=== PATIENT | male | born 1970 | race Caucasian/White ===

== ENCOUNTER 2023-02-21 11:09 | Emergency (ER) | payer OTHER, SELFPAY ==
--- NOTE | ~2023-02-21 | CT_ITS ---
EXAMINATION: CT abdomen pelvis wo con DATE: 02/21/2023 12:18 INDICATION: Left flank pain TECHNIQUE: Computed tomography (CT) of the abdomen and pelvis was performed without intravenous contr ast. The dose-length product (DLP) was 294.71 mGy-cm. Automated exposure control and iterative recons truction technique were employed. COMPARISON: None FINDINGS: There is mild emphysema visualized lung bases. Healed fractures of the right eighth through 10th ribs are noted. The heart size is normal. The liver, spleen, pancreas, gallbladder, and adrenal glands are normal. The right kidney is unremarkable. No stones are identified in the kidneys, ureter s, or bladder. No hydronephrosis or hydroureter. There are multiple (at least eight) hyperattenuating lesions of the left kidney which measure up to 6 mm and are consistent with hemorrhagic cysts. There is a 12 mm simple cyst of the left kidney. No pathologically enlarged abdominal or pelvic lymph node s are identified. There is calcified atherosclerosis of the aorta and many of the other arteries. No free intraperitoneal gas or evidence of bowel obstruction. A moderate volume of colonic stool is pres ent. There is severe lower lumbar spondylosis. IMPRESSION: 1. No CT correlate for the patient's symptoms. Reviewed, dictated and finalized at location B.
[2023-02-21 11:19] VITALS: BP 129/85; RESP 18; TEMP 36.6; O2SAT 96
--- NOTE | 2023-02-21 11:50 | ED.MALEGU ---
HPI - Male Genitourinary General Chief complaint: Urogenital-Male Stated complaint: prostate swelling Time Seen by Provider: 02/21/23 11:50 History of Present Illness HPI Narrative: Patient is a 52-year-old male with history of alcohol use disorder, hypertension, anxiety here with multiple complaints including difficulty maintaining a full stream of urine as well as some pain down his left leg. Patient states that he was recently at [facility] for use being treated for his alcohol use disorder. He states that during this hospitalization he was started on multiple new psychiatric medications. In the past he has had some intermittent difficulty with maintaining a strong urinary stream however over the last 2 weeks it seems to be more persistent and worsening. He notes that he seems to need to focus on urinating in order to fully void his bladder. Additionally he describes some pain located over the left flank, radiating into the buttock and into the proximal left lateral thigh. He notes that it feels like a tight band and gets much worse with walking including walking up and down hills. No associated numbness or weakness in the leg. He has been taking flexeril and gabapentin at home with minimal relief of the tightness. No midline back pain, no falls, no saddle anesthesia, no bowel or bladder incontinence. He did see his PCP last week for the same symptoms. Related Data Allergies Allergy/AdvReac Type Severity Reaction Status Date / Time No Known Allergies Allergy Unverified 01/23/14 18:53 Review of Systems Review of Systems: CONSTITUTIONAL: Denies fever, chills, or sweats. EYES: Denies visual changes, redness, or discharge. ENT: Denies rhinorrhea, congestion, sore throat, or otalgia. CARDIOVASCULAR: Denies chest pain, palpitations, or edema. RESPIRATORY: Denies cough or dyspnea. GASTROINTESTINAL: Denies abdominal pain, nausea, vomiting, or diarrhea. GENITOURINARY: Denies dysuria or hematuria. Difficulty maintaining strong urinary stream. SKIN: Denies rash or itching. MUSCULOSKELETAL: Denies back pain, joint pain, or myalgia. NEUROLOGIC: Denies headache, numbness, or weakness. PSYCHIATRIC: Denies anxiety or depression. Exam Narrative: GENERAL: Well-appearing, well-nourished, and in no acute distress. HEAD: Normocephalic, atraumatic. EYES: PERRLA and EOMI. ENT: Nares clear. Mucous membranes moist. NECK: Supple. CHEST: Clear to auscultation. No respiratory distress. HEART: Regular rate and rhythm. Normal peripheral pulses. ABDOMEN: Soft, nontender, nondistended. EXTREMITIES: Normal range of motion. No edema. Tenderness over the left lateral lower back with palpable muscle tightness in this region. Full ROM of lumbar spine with no midline tenderness. Normal sensation over bilateral lower extremities. SKIN: Warm, dry, no rash. NEURO: No focal deficits. Alert and oriented x3. PSYCH: Normal mood and affect. Course Course Emergency Course: Chart review performed, patient here with difficulty voiding and bilateral flank pain. No prior visits here in our system. Patient seen evaluated, in no acute distress. I believe he likely has 2 processes occurring at the same time. The 1st of which seems to be some intermittent difficulty with maintaining a strong urinary stream. He does note a history of this in the past but seems to have worsened since initiating multiple new psychiatric medications over the last 2 weeks. I believe this could be somewhat related to CVA at age related prostate issue as well as medication induced. He additionally it seems to be having some left lateral back pain. He has no midline tenderness, no trauma, I believe less likely that he has a spinal related issue and more likely that he has a musculoskeletal pain due to the nature of the pain and lack of associated symptoms. Presentation does not seem consistent with sciatica. Will do back lab work, UA, bladder scan, CT abdomen pelvis to evaluate fo
[2023-02-21 12:18] LABS: Basophils Absolute Auto 0.1 K/mm3 (0.0-0.1); Basophils Percent Auto 1.1 % (0.2-1.2); Eosinophils Absolute Auto 0.6 K/mm3 (0-0.3); Eosinophils Percent Auto 5.8 % (0-4.4); Hematocrit 46.5 % (42.0-52.0); Hemoglobin 15.4 g/dL (14.0-18.0); Immature Granulocyte Absolute 0.04 K/mm3 (0.00-0.031); Immature Granulocyte Percent A 0.4 % (0-0.5); Lymphocytes Absolute Auto 1.74 K/mm3 (0.9-3.2); Lymphocytes Percent Auto 17.1 % (18.3-44.2); Mean Corpuscular HGB Conc 33.1 g/dl (32-36); Mean Corpuscular Volume 93.8 fl (80-100); Mean Platelet Volume 9.6 fl (7.4-10.4); Monocytes Absolute Auto 0.5 K/mm3 (0.1-0.6); Monocytes Percent Auto 4.4 % (2.6-8.5); Neutrophils Absolute Auto 7.2 K/mm3 (1.3-6.7); Neutrophils Percent Auto 71.2 % (45.5-73.1); Platelet Count Result 345 k/mm3 (150-375); Red Blood Count 4.96 M/mm3 (4.6-6.20); Red Cell Distribution Width 12.6 % (11.5-14.5); White Blood Count 10.2 K/mm3 (4.5-10.0)
[2023-02-21 12:24] LABS: Alanine Aminotransferase 33 U/L (6-50); Albumin Level 4.1 g/dL (3.5-5.1); Alkaline Phosphatase 85 U/L (38-126); Anion Gap 7 mmol/L (8-16); Aspartate Amino Transferase 70 U/L (17-59); Bilirubin,Total 0.7 mg/dL (0.2-1.3); Blood Urea Nitrogen 16 mg/dL (9-20); Calcium 8.8 mg/dL (8.4-10.2); Carbon Dioxide 28 mmol/L (22-30); Chloride 102 mmol/L (98-107); Estimated Glomerular Filt Rate > 60; Glucose 105 mg/dL (65-110); Potassium 5.1 mmol/L (3.4-5.0); Sodium 137 mmol/L (137-145)
[2023-02-21] MEDS: KETOROLAC 15 MG/ML VIAL (*BKC) IV PUSH (13:00)
[2023-02-21 13:49] LABS: Appearance Urine Clear (Clear); Bilirubin Urine Negative (Negative); Blood Urine Negative (Negative); Color Urine Yellow (Yellow); Glucose Urine UA Negative (Negative); Ketones Urine Negative (Negative); Leukocyte Esterase Ur Negative LEU/UL (Negative); Nitrate Urine Negative (Negative); Protein Urine Negative (Negative); Specific Grav Ur 1.017 (1.001-1.035); Urobilinogen Urine 0.2 mg/dL (<2.0)
[2023-02-21 13:59] LABS: Add Urine Microscopic? NO
--- NOTE | 2023-02-21 15:11 | PC.NURSE ---
Pt voided 250 in urinal and refused odom.
== END 2023-02-21 15:12 | disposition left against medical advice (07) ==
PROVIDERS: Emergency Provider Student in an Organized Health Care Education/Training Program; PCP Family Medicine
DX: R33.9 Retention of urine, unspecified (principal); S76.912A Strain of unspecified muscles, fascia and tendons at thigh level, left thigh, initial encounter; I10 Essential (primary) hypertension; F41.9 Anxiety disorder, unspecified; F10.90 Alcohol use, unspecified, uncomplicated; X58.XXXA Exposure to other specified factors, initial encounter
CPT/HCPCS: 36415; 74176; 80053; 81003; 85025; 96374; 99284; J1885

== ENCOUNTER 2023-05-09 12:45 | Emergency (ER) | payer OTHER, SELFPAY ==
[2023-05-09 13:05] VITALS: BP 141/90; PULSE 84; RESP 18; TEMP 36.6; O2SAT 100
--- NOTE | 2023-05-09 17:01 | ED.BACK ---
HPI - Back Pain/Injury General Chief Complaint: Back Pain/Injury Stated Complaint: back pain Time Seen by Provider: 05/09/23 15:23 History of Present Illness HPI Narrative: 53-year-old male present to the emergency department for evaluation of low back pain that radiates down his left leg to the level of his knee. Patient states he does have a longstanding history of degenerative disc disease. Patient states over the course of the last few months he has had worsening lower back pain. Patient states over last few days he has had pain that radiates down the back of his left leg. Patient denies any associated numbness or weakness. Patient reports the pain is worsened with ambulation and bending. patient denies any change in bowel or bladder habits. Related Data Allergies Allergy/AdvReac Type Severity Reaction Status Date / Time No Known Allergies Allergy Unverified 01/23/14 18:53 Review of Systems Review of Systems: All systems reviewed & are unremarkable except as noted in HPI and below Exam Narrative: APPEARANCE: Well appearing, no pain, no distress, well-nourished. HEAD: normocephalic, atraumatic. EYES: PERRLA/EOMI, conjunctivae clear. NOSE: Normal no drainage EARS:TMS clear with good light reflex. THROAT: Pharynx clear, no exudate. NECK: Supple. No adenopathy, no masses. RESPIRATORY: Airway patent, respirations nonlabored. Clear to auscultation bilaterally, no rales, rhonchi, wheezing. CARDIOVASCULAR: Regular rate and rhythm without murmurs rubs or gallops. ABDOMINAL: Soft, nontender, nondistended, normal bowel sounds MUSCULOSKELETAL: Lower back tenderness to palpation, left buttock tenderness to palpation. Normal strength and reflexes NEURO: Alert. Cranial nerves II through XII intact. Good gait. Good coordination SKIN: Warm, dry. Normal Color Course Course Emergency Course: 53-year-old male presented to the ED for evaluation of lower back and left leg pain. Patient's exam is consistent with sciatica. Patient was treated with Toradol, Herndon and Flexeril in the ED. Patient was provided his medications for home in addition to a Medrol Dosepak Vital Signs Vital signs: Vital Signs Temperature 97.9 F 05/09/23 13:05 Pulse Rate 84 05/09/23 13:05 Respiratory Rate 18 05/09/23 13:05 Blood Pressure 141/90 H 05/09/23 13:05 Pulse Oximetry 100 05/09/23 13:05 Temperature 97.9 F 05/09/23 13:05 Pulse Rate 84 05/09/23 17:12 Respiratory Rate 20 05/09/23 17:12 Blood Pressure 141/90 H 05/09/23 13:05 Pulse Oximetry 100 05/09/23 17:12 MDM - Back Pain/Injury Differential Diagnosis Differential diagnosis: Likely lumbar radiculopathy, sciatica and strain of lumbar region Discharge Plan Discharge Clinical Impression: Sciatica Patient Disposition: Home, Self-Care Condition: Stable Instructions: Antibiotic Form, Sciatica (ED), Acute Low Back Pain (ED) Additional Instructions: Flexeril for muscle spasm. Medrol Dosepak as directed until completed. Herndon as needed for additional pain control. Have close follow-up with her primary care physician. If you have any worsening symptoms then please call or return to the emergency department. Prescriptions: New methylprednisolone [Medrol (Yosvany)] 4 mg tablets,dose pack See Rx Instructions .ROUTE .COMPLEX Qty: 21 0RF Rx Instructions: orally per package directions cyclobenzaprine 10 mg tablet 10 mg PO BID PRN (Reason: muscle spasm) Qty: 14 0RF hydrocodone-acetaminophen 5-325 mg tablet 1 tablet PO Q12H PRN (Reason: pain) Qty: 10 0RF Follow-up/Referrals: Yoshi,Hayden Mata MD [Primary Care Provider] -
[2023-05-09] MEDS: CYCLOBENZAPRINE HCL 10 MG TABLET PO (17:09)
[2023-05-09] MEDS: HYDROcodone/acetaminophen (*CRX) 5-325 MG TABLET 1 TAB PO (17:09)
[2023-05-09] MEDS: KETOROLAC 30 MG/ML VIAL (*BKC) IM (17:10)
[2023-05-09 17:12] VITALS: PULSE 84; RESP 20; O2SAT 100
== END 2023-05-09 17:15 | disposition home or self-care (01) ==
PROVIDERS: Emergency Provider Emergency Medicine; PCP Family Medicine
DX: M54.42 Lumbago with sciatica, left side (principal)
CPT/HCPCS: 96372; 99283; A9270; J1885

== ENCOUNTER 2023-06-07 05:39 | Emergency (ER) | payer OTHER, SELFPAY ==
[2023-06-07 05:42] VITALS: BP 152/82; PULSE 95; RESP 16; TEMP 36.9; O2SAT 100
[2023-06-07] MEDS: KETOROLAC (*BKC) 60 MG/2 ML VIAL IM (07:18)
--- NOTE | 2023-06-07 08:07 | ED.BACK ---
HPI - Back Pain/Injury General Chief Complaint: Back Pain/Injury Stated Complaint: back pain Time Seen by Provider: 06/07/23 07:05 History of Present Illness HPI Narrative: Patient is a 53-year-old male who presents ER with left-sided back pain. He has chronic pain for 8 months. He is scheduled for an MRI in 4 days. He just finished a Medrol Dosepak with only mild improvement of symptoms but then it worsened again 2 days ago. He has radiation down the left leg. No saddle anesthesia. No difficulty with urination/defecation. No fevers or chills or sweats. Denies any known injury. Related Data Allergies Allergy/AdvReac Type Severity Reaction Status Date / Time No Known Allergies Allergy Verified 06/07/23 06:02 Review of Systems Review of Systems: All systems reviewed & are unremarkable except as noted in HPI and below Constitutional: Constitutional: Reports no additional constitutional complaints Musculoskeletal: Musculoskeletal: Reports back pain, Denies arthralgias and Denies joint swelling Neurologic: Denies focal weakness and Denies numbness PMFSH Past Medical History Medical History (Updated 06/07/23 @ 08:29 by Ky Leigh MD) Chronic back pain Surgical History Surgical History (Updated 06/07/23 @ 08:09 by Ky Leigh MD) No pertinent past surgical history Exam Narrative: GENERAL: Well-appearing, well-nourished, and in no acute distress. HEAD: Normocephalic, atraumatic. CHEST: Clear to auscultation. No respiratory distress. HEART: Regular rate and rhythm. Normal peripheral pulses. Back: No midline tenderness the T/L-spine. There is left paraspinal tenderness at the SI joint that reproduces patient's pain. EXTREMITIES: Normal range of motion. No edema. NEURO: Alert and oriented x3. PSYCH: Normal mood and affect. Course Course Emergency Course: Patient requesting something stronger than NSAIDs and Flexeril which she has at home. We will start him on naproxen and given a small dose of hydrocodone for night. Discussed need for follow-up with his doctor for further treatment evaluation. Vital Signs Vital signs: Vital Signs Temperature 98.5 F 06/07/23 05:42 Pulse Rate 95 06/07/23 05:42 Respiratory Rate 16 06/07/23 05:42 Blood Pressure 152/82 H 06/07/23 05:42 Pulse Oximetry 100 06/07/23 05:42 Oxygen Delivery Room Air 06/07/23 05:42 Temperature 98.5 F 06/07/23 05:42 Pulse Rate 95 06/07/23 05:42 Respiratory Rate 16 06/07/23 05:42 Blood Pressure 152/82 H 06/07/23 05:42 Pulse Oximetry 100 06/07/23 05:42 Oxygen Delivery Room Air 06/07/23 05:42 Discharge Plan Discharge Clinical Impression: Chronic back pain Patient Disposition: Home, Self-Care Condition: Stable Instructions: Chronic Back Pain (DC) Additional Instructions: Return to the ER if you have increased pain in your back, you develop lower extremity weakness/numbness/paralysis, you have numbness or tingling in your private parts, or you are unable to control your ability to urinate/stool. Prescriptions: New hydrocodone-acetaminophen 5-325 mg tablet 1 tablet PO Q6H PRN (Reason: pain) Qty: 10 0RF naproxen 375 mg tablet 375 mg PO BID Qty: 14 0RF No Action methylprednisolone [Medrol (Yosvany)] 4 mg tablets,dose pack See Rx Instructions .ROUTE .COMPLEX Qty: 21 0RF Rx Instructions: orally per package directions cyclobenzaprine 10 mg tablet 10 mg PO BID PRN (Reason: muscle spasm) Qty: 14 0RF hydrocodone-acetaminophen 5-325 mg tablet 1 tablet PO Q12H PRN (Reason: pain) Qty: 10 0RF Follow-up/Referrals: Yoshi,Hayden Mata MD [Primary Care Provider] - 1 Week
== END 2023-06-07 08:41 | disposition home or self-care (01) ==
PROVIDERS: Emergency Provider Emergency Medicine; PCP Family Medicine
DX: M54.9 Dorsalgia, unspecified (principal); G89.29 Other chronic pain
CPT/HCPCS: 96372; 99283; J1885

== ENCOUNTER 2023-12-24 20:39 | Emergency (ER) | payer OTHER, SELFPAY ==
--- NOTE | ~2023-12-24 | XR_ITS ---
EXAMINATION: XR chest 2V Exam Date/Time: 12/24/2023 21:02 CDT HISTORY: chest tightness Comparison: 08/10/2004. RESULT: Lines, tubes, and devices: None. Lungs and pleura: Diffuse reticular opacities with cuffing. Cardiomediastinal silhouette: Stable. Other: No acute osseous or upper abdominal finding. IMPRESSION: Pulmonary opacities may represent respiratory bronchiolitis in the appropriate clinical context. Reviewed, dictated and finalized at location K.
--- NOTE | 2023-12-24 20:40 | ECG_ITS ---
Test Date: 2023-12-24 20:49:12 Measurements Intervals [place] Rate: 94 P: 60 ME: 125 QRS: 56 QRSD: 80 T: 66 QT: 336 QTc: 421 Interpretive Statements SINUS RHYTHM NORMAL ECG No previous ECG available for comparison Electronically Signed On 12-25-2023 07:08:58 CDT by Kieran Poole D.O.
[2023-12-24 21:01] VITALS: BP 181/103; PULSE 94; RESP 16; TEMP 36.9; O2SAT 98
[2023-12-24 21:06] LABS: Basophils Percent Auto 0.5 % (0.2-1.2); Eosinophils Absolute Auto 0.1 K/mm3 (0-0.3); Eosinophils Percent Auto 1.1 % (0-4.4); Hematocrit 44.3 % (42.0-52.0); Hemoglobin 14.8 g/dL (14.0-18.0); Immature Granulocyte Absolute 0.01 K/mm3 (0.00-0.031); Immature Granulocyte Percent A 0.1 % (0-0.5); Lymphocytes Absolute Auto 2.36 K/mm3 (0.9-3.2); Lymphocytes Percent Auto 27.9 % (18.3-44.2); Mean Corpuscular HGB Conc 33.4 g/dl (32-36); Mean Corpuscular Hemoglobin 29.8 pg (26-34); Mean Corpuscular Volume 89.3 fl (80-100); Monocytes Absolute Auto 0.5 K/mm3 (0.1-0.6); Monocytes Percent Auto 5.9 % (2.6-8.5); Neutrophils Absolute Auto 5.5 K/mm3 (1.3-6.7); Neutrophils Percent Auto 64.5 % (45.5-73.1); Platelet Count Result 344 k/mm3 (150-375); Red Blood Count 4.96 M/mm3 (4.6-6.20); Red Cell Distribution Width 15.1 % (11.5-14.5); White Blood Count 8.5 K/mm3 (4.5-10.0)
[2023-12-24 21:19] LABS: Alanine Aminotransferase 16 U/L (6-50); Albumin Level 4.5 g/dL (3.5-5.1); Alkaline Phosphatase 84 U/L (38-126); Anion Gap 11 mmol/L (4-12); Aspartate Amino Transferase 25 U/L (17-59); Bilirubin,Total 0.6 mg/dL (0.2-1.3); Blood Urea Nitrogen 20 mg/dL (9-20); Calcium 8.9 mg/dL (8.4-10.2); Carbon Dioxide 25 mmol/L (22-30); Chloride 103 mmol/L (98-107); Estimated CRCL calculation 60 ml/min; Estimated Glomerular Filt Rate > 60; Glucose 95 mg/dL (65-110); Lipase 102 U/L (23-300); Partial Thromboplastin Time 28.5 Seconds (22.3-36.8); Prothrombin Time 13.1 Seconds (11.1-14.7); Sodium 139 mmol/L (137-145)
[2023-12-24 21:30] LABS: Troponin I < 0.012 ng/mL (0.000-0.034)
[2023-12-24 22:07] VITALS: BP 159/112; PULSE 92; RESP 12; TEMP 37.1; O2SAT 95; O2SAT 96
--- NOTE | 2023-12-25 00:01 | ECG_ITS ---
Test Date: 2023-12-25 00:05:35 Measurements Intervals [place] Rate: 79 P: 59 CO: 141 QRS: 25 QRSD: 94 T: 58 QT: 372 QTc: 428 Interpretive Statements SINUS RHYTHM WITH SINUS ARRHYTHMIA NORMAL ECG Compared to ECG 12/24/2023 20:49:12 No significant changes Electronically Signed On 12-25-2023 07:12:08 CDT by Kieran Poole D.O.
[2023-12-25 00:29] LABS: Troponin I < 0.012 ng/mL (0.000-0.034)
--- NOTE | 2023-12-25 00:45 | ED.GENADULT ---
HPI - General Adult General Chief complaint: Chest Pain Stated complaint: elevated blood pressure/chest tightness Time Seen by Provider: 12/24/23 23:07 History of Present Illness HPI narrative: This is a 53-year-old male history of anxiety and hypertension presenting elevated blood pressures patient says he has been checking his blood pressure all day and continues to be elevated at about 150/100. He also feels like he is having panic attacks with chest pain and shortness of breath. Patient is not currently chest pain. Chest pain is not related to exertion diaphoresis and does not radiate. Patient denies fevers chills productive cough lower extremity edema. Related Data Allergies Allergy/AdvReac Type Severity Reaction Status Date / Time No Known Allergies Allergy Verified 06/07/23 06:02 [facility] Past Medical History Medical History Chronic back pain Surgical History Surgical History No pertinent past surgical history Exam Narrative: APPEARANCE: No apparent distress. Anxious. Head: atraumatic. EYES: EOMI, NOSE: Atraumatic NECK: Trachea midline RESPIRATORY: No increased rate of breathing, speaking in full sentences, scattered expiratory wheezing CARDIOVASCULAR: Slightly tachycardic no peripheral edema ABDOMINAL: Non-distended soft nontender MUSCULOSKELETAl: No obvious deformities NEURO: Alert. Moving 4/4 extremities SKIN:: Warm, dry. Normal color PSYCHIATRIC: Anxious Course Vital Signs Vital signs: Vital Signs Temperature 98.4 F 12/24/23 21:01 Pulse Rate 94 12/24/23 21:01 Respiratory Rate 16 12/24/23 21:01 Blood Pressure 181/103 H 12/24/23 21:01 Pulse Oximetry 98 12/24/23 21:01 Temperature 98.7 F 12/24/23 22:07 Pulse Rate 92 12/24/23 22:07 Respiratory Rate 12 12/24/23 22:07 Blood Pressure 159/112 H 12/24/23 22:07 Pulse Oximetry 96 12/24/23 22:07 Oxygen Delivery Room Air 12/24/23 22:07 Medical Decision Making MDM Narrative Medical decision making narrative: -Course: 53-year-old male hypertension anxiety presenting with concerns about his blood pressure. Blood pressure mildly elevated in ED although patient is very anxious. Chest pain workup unremarkable. Patient has slight expiratory wheezing on exam but no respiratory distress. He is requesting inhaler as he knows he has COPD from smoking. Patient given Valium for anxiolysis. Patient educated on hypertension and discharged with primary care follow-up. Given return precautions. -DDX includes but is not limited to: Anxiety, panic disorder, ACS, pneumonia, bronchitis -Co-morbidities complicating care: Hypertension, anxiety, COPD/asthma -Independent interpretation of studies: CBC normal. Metabolic panel unremarkable. Troponins undetectable x2. Chest x-ray showed bronchiolitis which is consistent with the patient's scattered wheezing. No actual respiratory distress. Independent EKG interpretation: Rhythm [sinus], Rate [79], [place] -[normal], MD -[normal], QRS [narrow], QTC [normal], T waves -[negative for concerning inversions], ST Segments - [Negative for concerning elevations] Final interpretations: [Normal Sinus Rhythm] -Interventions: Valium 5 mg IV -Shared decision making / Disposition: Discharge -RX abuse albuterol Vital Signs Vital Signs: Vital Signs Temperature 98.4 F 12/24/23 21:01 Pulse Rate 94 12/24/23 21:01 Respiratory Rate 16 12/24/23 21:01 Blood Pressure 181/103 H 12/24/23 21:01 Pulse Oximetry 98 12/24/23 21:01 Temperature 98.7 F 12/24/23 22:07 Pulse Rate 92 12/24/23 22:07 Respiratory Rate 12 12/24/23 22:07 Blood Pressure 159/112 H 12/24/23 22:07 Pulse Oximetry 96 12/24/23 22:07 Oxygen Delivery Room Air 12/24/23 22:07 Lab Data 12/24/23 20:58 12/24/23 20:58 Labs: Lab Results 12/24/23 12/25/23 Range/Un
[2023-12-25] MEDS: diazePAM INJ (*CRX) 10 MG/2 ML SYRINGE 5 MG IV PUSH (01:02)
== END 2023-12-25 01:10 | disposition home or self-care (01) ==
PROVIDERS: Emergency Provider Emergency Medicine; PCP Family Medicine
DX: I10 Essential (primary) hypertension (principal); F41.9 Anxiety disorder, unspecified; J44.9 Chronic obstructive pulmonary disease, unspecified; G89.29 Other chronic pain; M54.9 Dorsalgia, unspecified; F17.200 Nicotine dependence, unspecified, uncomplicated
CPT/HCPCS: 36415; 71046; 80053; 83690; 84484; 85025; 85610; 85730; 93005; 96374; 99284; J3360